=== PATIENT | female | born 2005 | race Caucasian/White ===

== ENCOUNTER 2024-09-18 15:56 | Emergency (ER) | payer MEDICAID ==
[~2024-09-18] VITALS: Ht 162.6 cm; Wt 59.1 kg
[2024-09-18 16:07] VITALS: TEMP 101.4
[2024-09-18] MEDS ORDERED: LORA10TA7 PO (16:12)
[2024-09-18] MEDS ORDERED: SULF-261 PO (16:12)
[2024-09-18] MEDS ORDERED: 0.9% SODIUM CHLORIDE 10 ML SYRINGE IVP PRN (16:30)
[2024-09-18] MEDS: SODIUM CHLORIDE 0.9% 1,000 ML IV ONE (16:36)
[2024-09-18 16:41] LABS: BASOPHILS % (AUTO) 0.3 % (0.0-2.0); EOSINOPHILS % (AUTO) 0.7 % (1.0-6.0); HEMATOCRIT 44.6 % (36-46); HEMOGLOBIN 15.1 g/dL (12.0-16.0); LYMPHOCYTES # (AUTO) 0.7 K/uL (1.0-4.8); LYMPHOCYTES % (AUTO) 11.5 % (22.0-44.0); MEAN CORPUSCULAR HEMOGLOBIN 30.6 pg (26.0-34.0); MEAN CORPUSCULAR HGB CONC 33.8 G/dL (31.0-37.0); MEAN CORPUSCULAR VOLUME 90 fL (80-100); MONOCYTES # (AUTO) 0.6 K/uL (0.1-1.0); MONOCYTES % (AUTO) 10.5 % (2.0-9.0); NEUTROPHILS # (AUTO) 4.6 K/uL (1.8-7.7); PLATELET COUNT (AUTO) 212 K/uL (150-450); RED BLOOD CELL COUNT(AUTO) 4.93 MIL/uL (4.00-5.20); RED CELL DISTRIBUTION WIDTH 13.2 % (11.5-14.5); WHITE BLOOD COUNT (AUTO) 5.9 K/uL (4.5-11.0)
[2024-09-18 16:43] LABS: APPEARANCE,URINE CLEAR (CLEAR); BILIRUBIN,URINE NEGATIVE (NEGATIVE); COLOR,URINE LIGHT YELLOW (YELLOW); GLUCOSE, URINE (UA) NEGATIVE (NEGATIVE); KETONES,URINE NEGATIVE (NEGATIVE); LEUKOCYTE ESTERASE ,URINE TRACE (NEGATIVE); NITRATE,URINE NEGATIVE (NEGATIVE); OCCULT BLOOD,URINE SMALL (NEGATIVE); PROTEIN,URINE NEGATIVE (NEGATIVE); SPECIFIC GRAVITIY, URINE 1.008 (1.003-1.030); UROBILINOGEN,URINE <=1.0 mg/dL (<=1.0)
[2024-09-18] MEDS: SODIUM CHLORIDE 0.9% 1,750 ML IV ONE (16:43)
[2024-09-18 16:50] LABS: BACTERIA,URINE Few /HPF (None Seen); SQUAMOUS EPITHELIAL CELL,UR Few /LPF (None Seen)
[2024-09-18 16:54] LABS: PROTHROMBIN TIME 10.5 SEC (9.4-11.6)
[2024-09-18 16:56] LABS: ANION GAP 11 mmol/L (8-16); CALCIUM, TOTAL 8.7 mg/dL (8.8-10.5); CARBON DIOXIDE 27 mmol/L (22-29); CHLORIDE 100 mmol/L (98-107); CREATININE 0.76 mg/dL (0.60-1.30); GLOMERULAR FILTR. RATE CALC > 60 mL/min (>60); GLUCOSE,RANDOM 93 mg/dL (70-110); POTASSIUM 3.5 mmol/L (3.5-5.1); SODIUM SERUM 138 mmol/L (136-145); UREA NITROGEN, BLOOD 5 mg/dL (7-18)
[2024-09-18 17:00] LABS: LACTIC ACID 1.3 mmol/L (0.4-2.0)
[2024-09-18 17:08] LABS: HCG,QUANTITATIVE 1 mIU/mL (0-6); LIPASE 37 U/L (16-77)
[2024-09-18] MEDS: PIPERACILLIN SODIUM/TAZOBACTAM 2.25 GM in DEXTROSE 5%-WATER 50 ML IV ONE (17:10)
[2024-09-18] MEDS: MORPHINE SULFATE 2 MG/ML SYRINGE IVP ONE (17:18)
[2024-09-18] MEDS ORDERED: 0.9% SODIUM CHLORIDE 10 ML SYRINGE IVP ONE (17:25)
[2024-09-18] MEDS ORDERED: IOHEXOL 350 MG/ML 100 ML VIAL ONE (17:25)
[2024-09-18] MEDS: ACETAMINOPHEN 650 MG/ISO-OSM 65 ML IV ONE (17:51)
[2024-09-18 19:34] LABS: COVID AG,FIA SOURCE NASAL SWAB
[2024-09-18 19:49] VITALS: BP 112/67; PULSE 97; RESP 20; O2SAT 98
[2024-09-18 20:02] LABS: SARS-COV2 (COVID) ANTIGEN,FIA Negative (Negative)
[2024-09-18 20:03] LABS: INFLUENZA TYPE B NEGATIVE FOR TYPE B (NEGATIVE)
[2024-09-18 20:26] LABS: INFLUENZA TYPE A POSITIVE FOR TYPE A (NEGATIVE)
[2024-09-18] MEDS ORDERED: OSEL75CA45 PO (20:37)
== END 2024-09-18 20:45 | disposition home or self-care (01) ==
LOC: EMS 15:56
DX: R10.31 Right lower quadrant pain (principal); J10.1 Influenza due to other identified influenza virus with other respiratory manifestations; Z20.822 Contact with and (suspected) exposure to COVID-19
CPT/HCPCS: 99285; 74177; 96365; 71045; 96367; 96375; 87426; 80048; 81001; 83605; 83690; 84702; 85025; 85610; 87040; 87804; 36415; 93005; 84145; Q9967; J2270; J2543; J7060; J7030; J0131